=== PATIENT | male | born 2000 ===

== ENCOUNTER 2025-02-01 14:10 | Outpatient (CLI) | payer BC, SELFPAY ==
--- NOTE | ~2025-02-01 | XR_ITS ---
XR lumbar spine 6V w bending Indication: LOW BACK PAIN Comparison: None Findings: No fracture or subluxation, no subluxation with flexion-extension The disc heights are intact. Soft tissues unremarkable Impression: No acute abnormality. Reviewed, dictated and finalized at location P. [facility] Impression: No acute abnormality.
== END 2025-02-01 14:11 | disposition home or self-care (01) ==
LOC: GOSHIMG 14:11
PROVIDERS: PCP Chiropractor; Visit Provider Chiropractor
DX: M54.50 Low back pain, unspecified (principal)
CPT/HCPCS: 72114